=== PATIENT | female | born 1995 | race Caucasian/White ===

== ENCOUNTER 2023-06-18 03:07 | Emergency (ER) | payer BC ==
[~2023-06-18] VITALS: Ht 160 cm; Wt 49.0 kg
[2023-06-18 04:38] VITALS: BP 121/89; TEMP 98.1; O2SAT 98
[2023-06-18] MEDS ORDERED: ALPR0.255 PO (04:43)
== END 2023-06-18 04:47 | disposition home or self-care (01) ==
LOC: ER 03:16
DX: F41.0 Panic disorder [episodic paroxysmal anxiety] (principal)